=== PATIENT | female | born 1965 | race Caucasian/White ===

== ENCOUNTER 2020-10-01 18:59 | Emergency (ER) | payer OTHER, SELFPAY ==
[2020-10-01 19:15] VITALS: BP 128/78; PULSE 78; RESP 18; TEMP 36.6; O2SAT 98; BMI 19.3
--- NOTE | 2020-10-01 19:20 | PC.NURSE ---
pt calm and coopertive and requesting lab work for lithium levels. pt eloped ER from bed prior to being seen by provider. pt ambulatory and steady gait on feet. pt refused to be seen and stated this verbally but unwitnessed when patient actually left ER.
== END 2020-10-01 19:41 | disposition left against medical advice (07) ==
LOC: HO.ED 19:29
PROVIDERS: Emergency Provider Emergency Medicine
DX: Z51.81 Encounter for therapeutic drug level monitoring (principal)
CPT/HCPCS: 99282

== ENCOUNTER 2020-10-01 19:46 | Emergency (ER) | payer OTHER, SELFPAY ==
--- NOTE | 2020-10-01 | ECG_ITS ---
Test Reason : SUBSTANCE Blood Pressure : / mmHG Vent. Rate : 085 BPM Atrial Rate : 085 BPM P-R Int : 138 ms QRS Dur : 086 ms QT Int : 372 ms P-R-T Axes : 069 064 059 degrees QTc Int : 442 ms Normal sinus rhythm Normal ECG When compared with ECG of 24-NOV-2017 22:19, No significant change was found Referred By: Pedro Luis Zambrano Electronically Signed By:KAUSHIK CASTRO
[2020-10-01 20:11] VITALS: BP 146/98; PULSE 109; RESP 18; TEMP 36.2; O2SAT 97; BMI 23.8
[2020-10-01] MEDS: LORazepam 1 MG TABLET 2 MG PO (20:32)
--- NOTE | 2020-10-01 20:55 | PC.NURSE ---
Patient pulled needle out of arm during attempt to draw blood. Refuses to sit still. RN gave ativan. Will attempt again again when patient is calm.
[2020-10-01 21:18] LABS: COVID-19 Test Negative (Negative)
[2020-10-01 21:37] LABS: MANUAL DIFF FLAG NO
[2020-10-01 21:39] LABS: Basophils Absolute Auto 0.1 X10*3/uL (0.0-0.2); Basophils Percent Auto 0.8 % (0-2); Eosinophils Absolute Auto 0.2 X10*3/uL (0.0-0.4); Eosinophils Percent Auto 2.5 % (0-4); Hematocrit 42.2 % (37-47); Hemoglobin 14.1 g/dl (12.0-16.0); Imm Gran Abs Auto 0.02 X10*3/uL (0.00-0.03); Imm Gran Pct Auto 0.3 % (0.0-0.4); Lymphocytes Absolute Auto 2.8 X10*3/uL (1.2-4.9); Mean Corpuscular HGB Conc 33.4 g/dl (31.0-35.0); Mean Corpuscular Hemoglobin 32.9 pg (27.0-33.0); Mean Corpuscular Volume 98.4 fL (80-98); Mean Platelet Volume 9.7 fL (9.4-12.3); Monocytes Absolute Auto 0.5 X10*3/uL (0.1-1.2); Neutrophils Absolute Auto 3.7 X10*3/uL (2.0-8.3); Neutrophils Percent Auto 51.4 % (45-73); Platelet Count 344 X10*3/uL (160-400); Red Blood Count 4.29 X10*6/uL (4.20-5.50); Red Cell Distribution Width 13.2 % (11.0-16.0); White Blood Count 7.3 X10*3/uL (4.8-10.8)
--- NOTE | 2020-10-01 21:54 | ED.PSYCH ---
HPI - Psych General Chief Complaint: Psychiatric Symptoms Stated Complaint: crisis etoh Time Seen by Provider: 10/01/20 22:24 Source: patient Mode of arrival: ambulatory Limitations: no limitations History of Present Illness HPI Narrative: Patient brought to the ED for evaluation. Patient was brought by EMS due to police informing EMS patient was calling them about of fired due to electrical car plugged near her house occurring for the past 3 days. Which is false. Patient also has been drinking heavily. As per patient EMS report negative for any trauma. Related Data Home Medications Medication Instructions Recorded Confirmed fluoxetine 1 cap PO QAM 10/01/20 10/01/20 lithium carbonate 1 tab PO BID 10/01/20 10/01/20 quetiapine 1 tab PO BEDTIME 10/01/20 10/01/20 quetiapine [Seroquel] 1 tab PO TID 10/01/20 10/01/20 Allergies Allergy/AdvReac Type Severity Reaction Status Date / Time No Known Allergies Allergy Unverified 03/29/20 16:01 [No Known Allergies*] Review of Systems Review of Systems: Yes all other systems are reviewed and are negative Constitutional: Constitutional: Reports as per HPI and Reports no additional constitutional complaints Eyes: Eyes: Reports as per HPI and Reports no additional eye complaints ENT: Reports system reviewed and no additional complaints, except as documented and Reports as per HPI Cardiovascular: Cardiovascular: Reports as per HPI and Reports no additional cardiovascular complaints Respiratory: Respiratory: Reports as per HPI and Reports no additional respiratory complaints Gastrointestinal: Gastrointestinal: Reports as per HPI and Reports no additional gastrointestinal complaints Genitourinary: Genitourinary: Reports no additional female genitourinary complaints and Reports as per HPI Musculoskeletal: Musculoskeletal: Reports no additional musculoskeletal complaints and Reports as per HPI Neurologic: Reports system reviewed and no additional complaints, except as documented and Reports as per HPI Psychiatric: Psychiatric: Reports no additional psychiatric complaints and Reports as per HPI [facility] Past Medical History Medical History (Updated 10/01/20 @ 19:18 by Jason Cutler) No known health problems Social History Social History Advance Directives: No Advance Directives Information Provided: No Physical Exam Vital Signs: Vital Signs: Last Vital Signs Temp 97.2 F 10/01/20 20:11 Pulse 109 H 10/01/20 20:11 Resp 18 10/01/20 20:11 BP 146/98 H 10/01/20 20:11 Pulse Ox 97 10/01/20 20:11 Body Mass Index 23.8 Const: General: cooperative, healthy appearing, comfortable, no acute distress, well developed, alert, awake and Physically active Orientation/consciousness: patient oriented x3 HENMT: Head: Yes normal to inspection, Yes No palpable skull fracture present, Yes normocephalic, Yes atraumatic, No abrasion, No Garcia's sign, No contusion, No cranial bruits, No hematoma, No laceration, No occipital foramen tenderness, No palpable skull fracture, No raccoon eyes, No scalp lesion, No scalp tenderness, No Temporal artery tenderness present and No periorbital ecchymosis Eyes: General: appearance normal, both eyes and all related structures Neck: Neck: Yes normal visual inspection, Yes full ROM, Yes no lymphadenopathy, Yes no meningeal signs, Yes trachea midline, Yes supple, No bilateral parotid enlargement, No lymphadenopathy, No midline deformity, No positive Brudzinski's sign, No positive Kernig's sign, No tender, No tracheal deviation, No tracheostomy present, No JVD, No no JVD, No submandibular swelling and No prominent supraclavicular fat pad Chest: Chest palpation & inspection: normal inspection of the chest and normal palpation of entire chest wall Resp: Effort & Inspection: normal respiratory effort and able to speak in complete sentences Auscultation: clear to auscultation bilaterally Cardio: Jugular venous distension: no JVD Heart sounds: S1 normal heart sound present and S2 normal heart sound present GI: Inspection: Yes normal to inspection and No abdominal wall ecchymosis Palpation (GI): Soft to palpation, not firm, nontender, no guarding and not rigid : General: No CVA tenderness and Yes no CVA tenderness Back/Spine/Pelvis: Back: no CVA tenderness, No CVA tenderness and No back tenderness Skin: General skin exam: no rashes or lesions noted and elasticity normal Neuro: General: patient oriented x3, no meningeal signs and CN's II-XI intact bilaterally Cranial nerves: Yes CN's II-XII intact bilaterally Extrem: General: Yes normal to inspection and Yes full ROM Psych: Appearance: grossly normal, well kempt and not disheveled Course Course Course Narrative: Patient will have labs to be medically cleared. Once medically clear patient be evaluated by [facility] Reevaluation(s) Reevaluation #1: Patient labs are baseline. Patient awaiting [facility] evaluation. Sign into Dr. Argueta [facility] - Psych Lab Data Result diagrams: 10/01/20 21:31 10/01/20 21:31 Labs: Lab Results 10/01/20 10/01/20 10/01/20 Range/Units 20:51 21:31 21:31 WBC 7.3 (4.8-10.8) X10*3/uL RBC 4.29 (4.20-5.50) X10*6/uL Hgb 14.1 (12.0-16.0) g/dl Hct 42.2 (37-47) % MCV 98.4 H (80-98) fL MCH 32.9 (27.0-33.0) pg MCHC 33.4 (31.0-35.0) g/dl RDW 13.2 (11.0-16.0) % Plt Count 344 (160-400) X10*3/uL MPV 9.7 (9.4-12.3) fL Immature Gran % (Auto) 0.3 (0.0-0.4) % Neut % (Auto) 51.4 (45-73) % Lymph % (Auto) 38.0 (20-40) % [place] % (Auto) 7.0 (2-11) % Eos % (Auto) 2.5 (0-4) % Baso % (Auto) 0.8 (0-2) % Lymph # (Auto) 2.8 (1.2-4.9) X10*3/uL [place] # (Auto) 0.5 (0.1-1.2) X10*3/uL Eos # (Auto) 0.2 (0.0-0.4) X10*3/uL Baso # (Auto) 0.1 (0.0-0.2) X10*3/uL Abs Immat Gran (auto) 0.02 (0.00-0.03) X10*3/uL Absolute Neuts (auto) 3.7 (2.0-8.3) X10*3/uL Absolute Nucleated RBC 0.000 (0.0-0.012) X10*3/uL Nucleated RBC % (auto) 0.0 (0.0-0.2) /100WBC Sodium 143 (135-145) mmol/L Potassium 4.0 (3.3-5.1) mmol/L Chloride 107 (96-108) mmol/L Carbon Dioxide 23 (22-29) mmol/L Anion Gap 17 (12-20) BUN 12 (9-16) mg/dL Creatinine 0.67 (0.5-1.4) mg/dL Estim Creat Clear Calc 77.6 Estimated GFR > 60 Random Glucose 90 (60-115) mg/dL Calcium 9.3 (8.4-10.2) mg/dL Total Bilirubin 0.4 (0.0-1.0) mg/dL Direct Bilirubin < 0.2 (0.0-0.5) mg/dL AST 17 (5-31) U/L ALT 11 (0-31) U/L Alkaline Phosphatase 77 (39-117) U/L B-Natriuretic Peptide Total Protein 8.3 H (6.5-8.0) g/dL Albumin 5.0 (3.5-5.0) g/dL Urine Opiates Screen (Not Detect) Ur Barbiturates Screen (Not Detect) Ur Phencyclidine Scrn (Not Detect) Ur Amphetamines Screen (Not Detect) U Benzodiazepines Scrn (Not Detect) [place] (0.60-1.20) mmol/L Urine Cocaine Screen (Not Detect) U Marijuana (THC) Screen (Not Detect) Ethyl Alcohol mg/dL COVID-19 ([place]) Negative (Negative) COVID-19 Clin Com See Note 10/01/20 10/01/20 10/01/20 Range/Units 21:31 21:31 21:31 WBC (4.8-10.8) X10*3/uL RBC (4.20-5.50) X10*6/uL Hgb (12.0-16.0) g/dl Hct (37-47) % MCV (80-98) fL MCH (27.0-33.0) pg MCHC (31.0-35.0) g/dl RDW (11.0-16.0) % Plt Count (160-400) X10*3/uL MPV (9.4-12.3) fL Immature Gran % (Auto) (0.0-0.4) % Neut % (Auto) (45-73) % Lymph % (Auto) (20-40) % [place] % (Auto) (2-11) % Eos % (Auto) (0-4) % Baso % (Auto) (0-2) % Lymph # (Auto) (1.2-4.9) X10*3/uL [place] # (Auto) (0.1-1.2) X10*3/uL Eos # (Auto) (0.0-0.4) X10*3/uL Baso # (Auto) (0.0-0.2) X10*3/uL Abs Immat Gran (auto) (0.00-0.03) X10*3/uL Absolute Neuts (auto) (2.0-8.3) X10*3/uL Absolute Nucleated RBC (0.0-0.012) X10*3/uL Nucleated RBC % (auto) (0.0-0.2) /100WBC Sodium (135-145) mmol/L Potassium (3.3-5.1) mmol/L Chloride (96-108) mmol/L Carbon Dioxide (22-29) mmol/L Anion Gap (12-20) BUN (9-16) mg/dL Creatinine (0.5-1.4) mg/dL Estim Creat Clear Calc Estimated GFR Random Glucose (60-115) mg/dL Calcium (8.4-10.2) mg/dL Total Bilirubin (0.0-1.0) mg/dL Direct Bilirubin (0.0-0.5) mg/dL AST (5-31) U/L ALT (0-31) U/L Alkaline Phosphatase (39-117) U/L B-Natriuretic Peptide Cancelled Total Protein (6.5-8.0) g/dL Albumin (3.5-5.0) g/dL Urine Opiates Screen (Not Detect) Ur Barbiturates Screen (Not Detect) Ur Phencyclidine Scrn (Not Detect) Ur Amphetamines Screen (Not Detect) U Benzodiazepines Scrn (Not Detect) [place] < 0.10 L (0.60-1.20) mmol/L Urine Cocaine Screen (Not Detect) U Marijuana (THC) Screen (Not Detect) Ethyl Alcohol 236 mg/dL COVID-19 ([place]) (Negative) COVID-19 Clin Com 10/01/20 Range/Units 21:49 WBC (4.8-10.8) X10*3/uL RBC (4.20-5.50) X10*6/uL Hgb (12.0-16.0) g/dl Hct (37-47) % MCV (80-98) fL MCH (27.0-33.0) pg MCHC (31.0-35.0) g/dl RDW (11.0-16.0) % Plt Count (160-400) X10*3/uL MPV (9.4-12.3) fL Immature Gran % (Auto) (0.0-0.4) % Neut % (Auto) (45-73) % Lymph % (Auto) (20-40) % [place] % (Auto) (2-11) % Eos % (Auto) (0-4) % Baso % (Auto) (0-2) % Lymph # (Auto) (1.2-4.9) X10*3/uL [place] # (Auto) (0.1-1.2) X10*3/uL Eos # (Auto) (0.0-0.4) X10*3/uL Baso # (Auto) (0.0-0.2) X10*3/uL Abs Immat Gran (auto) (0.00-0.03) X10*3/uL Absolute Neuts (auto) (2.0-8.3) X10*3/uL Absolute Nucleated RBC (0.0-0.012) X10*3/uL Nucleated RBC % (auto) (0.0-0.2) /100WBC Sodium (135-145) mmol/L Potassium (3.3-5.1) mmol/L Chloride (96-108) mmol/L Carbon Dioxide (22-29) mmol/L Anion Gap (12-20) BUN (9-16) mg/dL Creatinine (0.5-1.4) mg/dL Estim Creat Clear Calc Estimated GFR Random Glucose (60-115) mg/dL Calcium (8.4-10.2) mg/dL Total Bilirubin (0.0-1.0) mg/dL Direct Bilirubin (0.0-0.5) mg/dL AST (5-31) U/L ALT (0-31) U/L Alkaline Phosphatase (39-117) U/L B-Natriuretic Peptide Total Protein (6.5-8.0) g/dL Albumin (3.5-5.0) g/dL Urine Opiates Screen Not Detected (Not Detect) Ur Barbiturates Screen Not Detected (Not Detect) Ur Phencyclidine Scrn Not Detected (Not Detect) Ur Amphetamines Screen Not Detected (Not Detect) U Benzodiazepines Scrn Not Detected (Not Detect) [place] (0.60-1.20) mmol/L Urine Cocaine Screen POSITIVE H (Not Detect) U Marijuana (THC) Screen POSITIVE H (Not Detect) Ethyl Alcohol mg/dL COVID-19 ([place]) (Negative) COVID-19 Clin Com Discharge Plan Discharge Clinical Impression: Alcohol abuse Prescriptions: No Action quetiapine 25 mg tablet 1 tab PO BEDTIME RF: 0 quetiapine [Seroquel] 25 mg tablet 1 tab PO TID RF: 0 lithium carbonate 450 mg tablet extended release 1 tab PO BID RF: 0 fluoxetine 20 mg capsule 1 cap PO QAM RF: 0
[2020-10-01 21:56] LABS: Ethanol 236 mg/dL
[2020-10-01 21:59] LABS: Alanine Aminotransferase 11 U/L (0-31); Alkaline Phosphatase 77 U/L (39-117); Aspartate Amino Transferase 17 U/L (5-31); Bilirubin Direct < 0.2 mg/dL (0.0-0.5); Bilirubin Total 0.4 mg/dL (0.0-1.0); Total Protein 8.3 g/dL (6.5-8.0)
[2020-10-01 22:07] LABS: Lithium < 0.10 mmol/L (0.60-1.20)
[2020-10-01 22:21] LABS: Amphetamine Screen Urine Not Detected (Not Detect); Barbiturates, Urine Not Detected (Not Detect); Benzodiazepines Screen Urine Not Detected (Not Detect); Cannabinoid Screen Urine POSITIVE (Not Detect); Cocaine Screen Urine POSITIVE (Not Detect); Opiate Screen Urine Not Detected (Not Detect); Phencyclidine Screen Urine Not Detected (Not Detect)
[2020-10-01 22:36] LABS: Anion Gap 17 (12-20); Blood Urea Nitrogen 12 mg/dL (9-16); Calcium 9.3 mg/dL (8.4-10.2); Carbon Dioxide 23 mmol/L (22-29); Chloride 107 mmol/L (96-108); Creatinine Clr Calc Pharmacy 77.6; Estimated Glomerular Filt Rate > 60; Glucose Random 90 mg/dL (60-115); Sodium 143 mmol/L (135-145)
[2020-10-01] MEDS: QUEtiapine Fumarate 50 MG TABLET PO (22:40)
--- NOTE | 2020-10-01 22:53 | PC.NURSE ---
Patient continues to present restlessness, pacing, on phone multiple times, engages in tangential conversation, demanding discharges, [place] 50 mg administered, will continue to monitor.
[2020-10-02] MEDS: diphenhydrAMINE HCL 25 MG TABLET 50 MG PO (01:02)
[2020-10-02] MEDS: HaloperidoL 5 MG TABLET PO (01:02)
[2020-10-02] MEDS: LORazepam 1 MG TABLET 2 MG PO (01:02)
--- NOTE | 2020-10-02 01:08 | PC.NURSE ---
Patient restless, pacing, intrusive, loud, disruptive, exit seeking, [id number], security called for support, behavior not changed and patient is fall risk, provider notified/ordered Ativan 2 mg PO, Benadryl 50 mg, and Haldol 5 mg, patient compliant, will continue to monitor.
--- NOTE | 2020-10-02 07:26 | PC.NURSE ---
Report received from JOS[facility]IG[facility]. Pt awake, requesting to speak to someone about discharge. Pt informed that she will need to wait until she is evaluated by crisis. Pt affect anxious, pt states she does not use ETOH daily and denies any symptoms of withdrawal.
[2020-10-02 08:09] VITALS: BP 110/74; PULSE 94; RESP 15; TEMP 37.1; O2SAT 94
--- NOTE | 2020-10-02 08:11 | PC.NURSE ---
MIRIANN called to confirm receipt of information of pt. Per N, no clinician will be available. Care team Brea Rapp notified.
[2020-10-02] MEDS: QUEtiapine Fumarate 25 MG TABLET PO (08:35)
[2020-10-02] MEDS: LORazepam 1 MG TABLET PO (08:35)
[2020-10-02] MEDS: FLUoxetine HCl 20 MG CAPSULE PO (08:35)
[2020-10-02 10:00] VITALS: RESP 20
--- NOTE | 2020-10-02 10:23 | PC.NURSE ---
Late entry: On arrival pt acutely anxious, perseverative re: discharge. Pt reminded several times that she is awaiting evaluation by crisis, but pt w/ difficulty retaining information. Pt alert, oriented x3, denied any symptoms of withdrawal. Pt medicated for anxiety, and is currently being evaluated by the CARE team.
--- NOTE | 2020-10-02 11:07 | PC.NURSE ---
Pt out in lee, awaiting care team to return w/ dispo. Pt clear, thought process appears logical, anxious at times re: going home. Pt denies SI.
[2020-10-02 12:00] VITALS: RESP 20
--- NOTE | 2020-10-02 12:36 | PC.NURSE ---
Pt given discharge instructions and work note as requested. Pt alert, orineted. Lyft ride obtained by care team. Pt aware, and in agreement w/ plan. No concerns reported.
== END 2020-10-02 12:38 | disposition home or self-care (01) ==
PROVIDERS: Physician Assistant; Emergency Provider Emergency Medicine Emergency Medical Services
DX: F10.10 Alcohol abuse, uncomplicated (principal); Y90.7 Blood alcohol level of 200-239 mg/100 ml; Z20.822 Contact with and (suspected) exposure to COVID-19; F14.90 Cocaine use, unspecified, uncomplicated; F12.90 Cannabis use, unspecified, uncomplicated; F41.9 Anxiety disorder, unspecified
CPT/HCPCS: 36415; 80048; 80076; 80178; 80307; 80320; 85025; 87635; 93005; 99284; Q0163

== ENCOUNTER 2020-10-04 11:20 | Outpatient (REF) | payer OTHER, SELFPAY | END 2020-10-04 11:21 | disposition home or self-care (01) | LOC: HO.LAB 11:20 | PROVIDERS: Visit Provider Internal Medicine | DX: Z20.822 Contact with and (suspected) exposure to COVID-19 (principal) | CPT/HCPCS: 36415; C9803; U0003; U0005 ==

== ENCOUNTER 2020-10-08 10:45 | Outpatient (REF) | payer OTHER, SELFPAY | END 2020-10-08 10:46 | disposition home or self-care (01) | LOC: HO.LAB 10:45 | PROVIDERS: Visit Provider Internal Medicine | DX: Z20.822 Contact with and (suspected) exposure to COVID-19 (principal) | CPT/HCPCS: 36415; C9803; U0003; U0005 ==

== ENCOUNTER 2021-07-13 11:18 | Outpatient (REF) | payer OTHER, SELFPAY ==
[2021-07-13 12:50] LABS: COVID-19 Test Negative (Negative); IDNOW Serial# 55D5AD1C
== END 2021-07-13 11:19 | disposition home or self-care (01) ==
LOC: HO.LAB 11:18
PROVIDERS: Visit Provider Internal Medicine
DX: Z20.822 Contact with and (suspected) exposure to COVID-19 (principal)
CPT/HCPCS: 36415; 87635; C9803

== ENCOUNTER 2025-02-17 07:31 | Emergency (ER) | payer MEDICAID, SELFPAY ==
[2025-02-17 07:40] VITALS: BP 103/67; PULSE 84; RESP 16; TEMP 36.4; BMI 26.9
--- NOTE | 2025-02-17 08:16 | ED_ITS ---
HPI - General Adult General Chief complaint: General Medical Stated complaint: GROIN PAIN Time Seen by Provider: 02/17/25 08:15 Source: patient and RN notes reviewed Mode of arrival: EMS Limitations: no limitations History of Present Illness ED Provider: Oneyda Hamm PA-C HPI narrative: 59-year-old female with medical history of presents to the ED today due to 2 days of left groin pain. Patient states she participated in yoga class Thursday, took a nap and woke up around 3:00 p.m. with a sharp constant pain in her left groin area. Patient states the pain is worsening, and is now having pain with ambulation. Patient reports having her urine tested yesterday at [facility] where she states they ?found a little something? in my urine and started her on antibiotics, although she is unaware of what antibiotic therapy she is on. Patient reports she woke up this morning around 3:00 a.m. due to groin pain and felt a brief episode of chest pain, that she states was likely due to anxiety over the pain as it resolved soon after waking up. Additionally, patient states she was in [place] on [place], and is worried that this may be a tick bite. She has not taken any pain relievers for pain management. Denies shortness of breath, abdominal pain, nausea, vomiting, diarrhea, dark/tarry stool, headaches, urinary symptoms Related Data Home Medications ?Medication ?Instructions ?Recorded ?Confirmed fluoxetine 20 mg capsule 1 cap PO QAM 10/01/20 lithium carbonate 450 mg 1 tab PO BID 10/01/20 tablet,extended release quetiapine 25 mg tablet 1 tab PO BEDTIME 10/01/20 quetiapine 25 mg tablet (Seroquel) 1 tab PO TID 10/01/20 Previous Rx's ?Medication ?Instructions ?Recorded cyclobenzaprine 5 mg tablet 5 mg PO TID PRN muscle spa sm #12 02/17/25 tabs Allergies Allergy/AdvReac Type Severity Reaction Status Date / Time No Known Allergies (No Known Allergy Unverified 02/17/25 07:44 Allergies*) Review of Systems 2 Review of Systems: CONST: Negative for fever, body aches and chills. HENT: Negative for neck pain/stiffness, headache, congestion, sore throat, swelling. EYES: Negative for discharge/pain or vision changes. RESP: Negative for cough/hemoptysis and shortness of breath. CV: Negative chest pain, difficulty breathing, palpitations. ABD: Negative pain, nausea, vomiting. : Negative increase frequency, dysuria, blood in urine or stool. MUSC: Negative for muscle aches, edema. POS L groin pain SKIN: Negative rash, lesions/sores. NEURO: Negative headache, dizziness, weakness. Yes all other systems are reviewed and are negative [facility] Past Medical History Attestation statement: The following information was validated with the patient. Source: old records reviewed and nursing notes reviewed Medical History (Updated 02/17/25 @ 08:52 by Noris Call PA-C) No known health problems Social History Social History Comment: N/A Advance Directives: No Advance Directives Information Provided: Yes Do you have a plan to hurt others: No Plan Physical Exam ED Vital Signs: Vital Signs - 24 hr 02/17/25 07:40 Temperature 97.6 F Pulse Rate 84 Respiratory Rate 16 Blood Pressure 103/67 Oxygen Delivery Method Room Air BMI result Body Mass Index 26.9 GENERAL APPEARANCE: ?AxOx4, generally well-appearing, no acute distress. HEENT: ?NC, AT. MMM. EOMI, clear conjunctiva, oropharynx clear. NECK: ?Supple without lymphadenopathy.? No stiffness or restricted ROM. HEART:? Normal rate and regular rhythm, normal S1/S2, no m/r/g LUNGS:? CTAB, moving air well. No crackles or wheezes are heard. ABDOMEN: ?Soft, nontender, nondistended with good bowel sounds heard. BACK: No CVAT, no obvious deformity. : On visual inspection of the external vagina no lesions, abnormalities, no masses palpated of the left groin, left labia majora TTP without lesions, vesicles, rashes, no evidence of tick, no erythema, no edema, labia minora without rashes, lesions, overlying skin changes EXTREMITIES: ?Without cyanosis, clubbing or edema. NEUROLOGICAL: ?Grossly nonfocal. Alert and oriented, moving all 4 extremities. Skin: ?Warm and dry without any rash. Medications Administered Discontinued Medications Generic Name Dose Route Start Last Admin Trade Name Freq PRN Reason Stop Dose Admin Acetaminophen 975 mg 02/17/25 08:29 02/17/25 09:07 Acetaminophen 325 Mg Tablet PO 02/17/25 08:30 975 mg ONCE ONE Administration Cyclobenzaprine HCl 5 mg 02/17/25 08:29 02/17/25 09:07 Cyclobenzaprine Hcl 5 Mg Tablet PO 02/17/25 08:30 5 mg ONCE ONE Administration Ketorolac Tromethamine 15 mg 02/17/25 08:29 02/17/25 09:07 Ketorolac Tromethamine 15 Mg/Ml Vial IVPUSH 02/17/25 08:30 15 mg ONCE ONE Administration Medical Decision Making Medical Decision Making MDM Narrative: 59-year-old female with medical history of presents to the ED today due to 2 days of left groin pain. Patient states she participated in yoga class Thursday, took a nap and woke up around 3:00 p.m. with a sharp constant pain in her left groin area. Patient states the pain is worsening, and is now having pain with ambulation. Patient reports having her urine tested yesterday at [facility] where she states they ?found a little something? in my urine and started her on antibiotics, although she is unaware of what antibiotic therapy she is on. Patient reports she woke up this morning around 3:00 a.m. due to groin pain and felt a brief episode of chest pain, that she states was likely due to anxiety over the pain as it resolved soon after waking up. Additionally, patient states she was [place], and is worried that this may be a tick bite. She has not taken any pain relievers for pain management. VSS, BP 103/67, pulse rate 84, respiratory rate of 16, patient afebrile with oral temp of 97.6?. On physical exam lungs clear to auscultation bilaterally, normal cardiac exam with regular rate, no murmurs/rubs/gallops, abdomen soft, nondistended, nontender, no suprapubic tenderness- less likely acute abdomen I inspected external genitalia, labia majora without lesions, rash, vesicles, no evidence of tick or tick bite, left labia majora TTP, no erythema, no palpated masses of the left groin, no overlying skin changes of left groin, labia minora without vesicles, lesions, rashes, no visual vaginal discharge externally. Left hip with full ROM, strength 5/5 bilaterally of lower extremities. Patient without chest pain now, patient states had a brief episode of chest pain around 3:00 a.m. the lasted for approximately 30 minutes. Patient states chest pain was likely due to anxiety over pain of the left groin. EKG shows normal sinus rhythm, without ST-elevation/depression, T-wave abnormality, initial troponin undetectable at <2.7 Plan for labs, UA, tick panel Course 8:47- no visual abnormalities on physical exam of left groin, or labia majora. I do think this is a probable strain of the left groin from yoga class, as her symptoms began shortly after participating in this class. Patient being medicated with 15 mg IM ketorolac, 975 p.o. Tylenol, 5 mg Flexeril to see if this gives relief of symptoms. Due to groin pain, we will evaluate UA for evidence of blood, further need to observe for nephrolithiasis, however patient without CVA tenderness bilaterally. Awaiting labs, UA Patient without visual or palpable masses left groin- less likely inguinal hernia No vesicles or visual rashes of labia majora/minora- less likely herpes 10:20- Labs without leukocytosis, H and H stable, no evidence of electrolyte abnormality. UA reveals 1+ leukocyte esterase, 6-10 urine WBCs, 1+ bacteria, with 11-20 squamous epithelial cells. Patient already on antibiotics for UTI prescribed to her by [facility]. I counseled patient to continue her antibiotic regimen. Patient states pain has improved significantly since being medicated with IM ketorolac, Tylenol, Flexeril. I observed the patient ambulating without ataxic gait. At this time I believe patient has strain of left groin after yoga class, as symptoms began shortly after this physical activity, physical exam free of any palpable masses, lesions, skin changes of the external genitalia, groin. We will prescribe 4 day course of Flexeril, I counseled patient to alternate 500 mg Tylenol, 400 mg ibuprofen, with gentle stretching for pain management. I encouraged patient to follow up with her PCP to ensure improvement. I counseled patient on strict return precautions including onset of fevers, abdominal pain, worsening groin pain, difficulty walking. Patient understands, is in agreement with the plan Differential Diagnosis Differential Diagnoses: The differential diagnosis associated with the presentation includes Acute abdomen Inguinal hernia Herpes Nephrolithiasis Left groin strain Admission/Observation Consideration of admission/observation: Escalation of care including admission/observation considered Lab Data MDM Lab Attestation statement: I reviewed the patient's lab results. 02/17/25 09:18 02/17/25 09:18 Labs: Lab Results 02/17/25 02/17/25 Range/Units 09:17 09:18 WBC 7.7 (4.8-10.8) X10*3/uL RBC 3.58 L (4.20-5.50) X10*6/uL Hgb 11.0 L (12.0-16.0) g/dl Hct 32.2 L (37.0-47.0) % MCV 89.9 (80.0-98.0) fL MCH 30.7 (27.0-33.0) pg MCHC 34.2 (31.0-35.0) g/dl RDW 13.3 (11.0-16.0) % Plt Count 293 (160-400) X10*3/uL MPV 9.3 L (9.4-12.3) fL Immature Gran % (Auto) 0.4 (0.0-0.4) % Neut % (Auto) 63.2 (45-73) % Lymph % (Auto) 21.3 (20-40) % [place] % (Auto) 10.8 (2-11) % Eos % (Auto) 3.8 (0-4) % Baso % (Auto) 0.5 (0-2) % Lymph # (Auto) 1.6 (1.2-4.9) X10*3/uL [place] # (Auto) 0.8 (0.1-1.2) X10*3/uL Eos # (Auto) 0.3 (0.0-0.4) X10*3/uL Baso # (Auto) 0.0 (0.0-0.2) X10*3/uL Abs Immat Gran (auto) 0.03 (0.00-0.03) X10*3/uL Absolute Neuts (auto) 4.8 (2.0-8.3) x10*3/uL Absolute Nucleated RBC 0.000 (0.0-0.012) X10*3/uL Nucleated RBC % (auto) 0.0 (0.0-0.2) /100WBC Sodium 138 (135-145) mmol/L Potassium 4.7 (3.3-5.1) mmol/L Chloride 103 (96-108) mmol/L Carbon Dioxide 27 (22-29) mmol/L Anion Gap 13 (12-20) BUN 14 (9-16) mg/dL Creatinine 0.65 (0.5-1.4) mg/dL Estim Creat Clear Calc 92.2 Estimated GFR > 60 Random Glucose 105 (60-115) mg/dL Calcium 9.2 (8.4-10.2) mg/dL Magnesium 2.2 (1.6-2.6) mg/dL Total Bilirubin 0.2 (0.0-1.0) mg/dL AST 19 (5-31) U/L ALT 12 (0-31) U/L Alkaline Phosphatase 95 (39-117) U/L Troponin I High Sens < 2.7 (<3.5-17.0) ng/L Total Protein 6.8 (6.5-8.0) g/dL Albumin 4.1 (3.5-5.0) g/dL Urine Color Dark Yellow Urine Appearance Clear Urine pH 5.5 (5.0-9.0) Ur Specific [place] 1.020 (1.005-1.025) Urine Protein Negative (Neg-Trace) mg/dL Urine Glucose (UA) Negative (Negative) mg/dL Urine Ketones Negative (Negative) mg/dL Urine Blood Negative (Negative) Urine Nitrite Negative (Negative) Ur Leukocyte Esterase Small (1+) H (Negative) Urine RBC 0-2 (0-2) /HPF Urine WBC 6-10 H (0-5) /HPF Ur Squamous Epith Cells 11-20 (0-2) /HPF Urine Bacteria 1+ (None Seen) Hyaline Casts 0-2 (0-2) /LPF Independent Interpretation I performed an independent interpretation of an: EKG Interpretation: I personally interpreted the EKG which revealed normal sinus rhythm without ST elevation/depression Vent. Rate : 73 BPM Atrial Rate : 73 BPM P-R Int : 154 ms QRS Dur : 84 ms QT Int : 394 ms P-R-T Axes : 48 18 31 degrees QTcB Int : 434 ms Normal sinus rhythm External Record Review External record reviewed: Inpatient record, Office record and Outpatient record Discharge Plan Discharge Clinical Impression: Groin strain Patient Disposition: Home, Self-Care Instructions: Muscle Strain (DC), Groin Strain (ED) Additional Instructions: You were evaluated in the ED today due to 2 days of left groin pain. Your lab work was negative for infection or any electrolyte abnormality. your UA revealed small amount of bacteria, however you were already on antibiotic treatment. your EKG was negative for any acute cardiac processes, your initial troponin which is an enzyme that your heart gives off when under stress or damage was negative. Your physical exam did not reveal any skin changes, rashes, lesion, palpable masses of the groin or labia of the vagina. I believe at this time your pain is caused by a muscle strain due to your symptoms beginning shortly after yoga class. To manage this pain, I will prescribe you a 4 day course of Flexeril which is a muscle relaxer. You should also take 500 mg of Tylenol, 400 mg of ibuprofen every 6 hours for pain. You can ice the affected area, or apply heat for muscle tension. You were medicated in the department with 5 mg Flexeril, 15 mg of intramuscular injection of ketorolac which is a strong NSAID, 975 mg of oral Tylenol, which gave good relief to your pain. You will not need any additional Tylenol or ibuprofen until 6:00 p.m. this evening. Continue to finish your antibiotic for UTI treatment that you were prescribed by [facility]. I recommend you follow up with your primary care doctor to ensure improvement. We are awaiting the results of your tick panel, we will call you if these are positive and begin appropriate therapy if needed. Please return to the ED if you experience fevers over 100.4?, worsening groin pain, lumps or masses felt in the groin, abdominal pain, nausea, vomiting, blood in the urine, chest pain, shortness of breath, or any new/worsening/concerning symptoms. Prescriptions: New cyclobenzaprine 5 mg tablet 5 mg PO TID PRN (Reason: muscle spasm) Qty: 12 0RF No Action quetiapine 25 mg tablet 1 tab PO BEDTIME quetiapine [Seroquel] 25 mg tablet 1 tab PO TID lithium carbonate 450 mg tablet extended release 1 tab PO BID fluoxetine 20 mg capsule 1 cap PO QAM Print Language: Danish
--- NOTE | 2025-02-17 08:34 | ECG_ITS ---
Test Reason : CHEST PAIN Blood Pressure : */* mmHG Vent. Rate : 73 BPM Atrial Rate : 73 BPM P-R Int : 154 ms QRS Dur : 84 ms QT Int : 394 ms P-R-T Axes : 48 18 31 degrees QTcB Int : 434 ms Normal sinus rhythm Septal infarct , age undetermined Abnormal ECG When compared with ECG of 01-Oct-2020 21:16, T wave amplitude has increased in Lateral leads Referred By: Noris Call Electronically Signed By: KAUSHIK CASTRO
[2025-02-17 09:24] LABS: MANUAL DIFF FLAG NO
[2025-02-17 09:25] LABS: Appearance Urine Clear; Glucose Urine UA Negative (Negative); PH 5.5 (5.0-9.0); Specific Gravity - Urine 1.020 (1.005-1.025); UMIC TRIGGER UACC YES
[2025-02-17 09:25] LABS: Hematocrit 32.2 % (37.0-47.0); Hemoglobin 11.0 g/dl (12.0-16.0); Imm Gran Abs Auto 0.03 X10*3/uL (0.00-0.03); Imm Gran Pct Auto 0.4 % (0.0-0.4); Lymphocytes Absolute Auto 1.6 X10*3/uL (1.2-4.9); Mean Corpuscular HGB Conc 34.2 g/dl (31.0-35.0); Mean Corpuscular Hemoglobin 30.7 pg (27.0-33.0); Mean Corpuscular Volume 89.9 fL (80.0-98.0); NRBC Abs Auto 0.000 X10*3/uL (0.0-0.012); NRBC Pct Auto 0.0 /100WBC (0.0-0.2); Platelet Count 293 X10*3/uL (160-400); Red Blood Count 3.58 X10*6/uL (4.20-5.50); White Blood Count 7.7 X10*3/uL (4.8-10.8)
[2025-02-17 09:36] LABS: UACC Culture Trigger YES
[2025-02-17 09:46] LABS: Alanine Aminotransferase 12 U/L (0-31); Albumin Level 4.1 g/dL (3.5-5.0); Alkaline Phosphatase 95 U/L (39-117); Anion Gap 13 (12-20); Aspartate Amino Transferase 19 U/L (5-31); Blood Urea Nitrogen 14 mg/dL (9-16); Calcium 9.2 mg/dL (8.4-10.2); Carbon Dioxide 27 mmol/L (22-29); Chloride 103 mmol/L (96-108); Creatinine Clr Calc Pharmacy 92.2; Estimated Glomerular Filt Rate > 60; Magnesium 2.2 mg/dL (1.6-2.6); Potassium 4.7 mmol/L (3.3-5.1); Sodium 138 mmol/L (135-145); Total Protein 6.8 g/dL (6.5-8.0)
[2025-02-17 09:56] LABS: Troponin-I High Sensitivity < 2.7 ng/L (<3.5-17.0)
[2025-02-17 10:29] VITALS: BP 118/66; PULSE 84; RESP 16; TEMP 36.8; O2SAT 95
[2025-02-17 11:17] VITALS: BP 110/76; PULSE 78; RESP 16; TEMP 36.8; O2SAT 98
[2025-02-18 14:58] LABS: A. Phagocytphilium DNA,RT-PCR NOT DETECTED (NOT DETECTED); Babesia Microti DNA, RT-PCR NOT DETECTED (NOT DETECTED); Borrelia Miyamotoi,DNA RT-PCR NOT DETECTED (NOT DETECTED); E.Chaffeensis DNA RT-PCR NOT DETECTED (NOT DETECTED); Lyme(Borrelia ssp)DNA RT-PCR NOT DETECTED (NOT DETECTED)
== END 2025-02-17 11:19 | disposition home or self-care (01) ==
PROVIDERS: Emergency Provider Emergency Medicine Emergency Medical Services
DX: S39.011A Strain of muscle, fascia and tendon of abdomen, initial encounter (principal); X58.XXXA Exposure to other specified factors, initial encounter; Y93.9 Activity, unspecified; Y92.9 Unspecified place or not applicable; Y99.9 Unspecified external cause status; R07.9 Chest pain, unspecified; R10.30 Lower abdominal pain, unspecified
CPT/HCPCS: 36415; 80053; 81001; 83735; 84484; 85025; 87086; 87468; 87469; 87478; 87484; 87798; 93005; 96374; 99284; J1885

== ENCOUNTER → 2025-02-17 08:34 | Outpatient (BNV) | payer MEDICAID, SELFPAY | PROVIDERS: Emergency Provider Emergency Medicine Emergency Medical Services; Visit Provider Internal Medicine | DX: R94.31 Abnormal electrocardiogram [ECG] [EKG] (principal); R07.9 Chest pain, unspecified | CPT/HCPCS: 93010 ==

== ENCOUNTER 2025-02-22 13:49 | Emergency (ER) | payer MEDICAID, SELFPAY ==
--- NOTE | ~2025-02-22 | US_ITS ---
EXAMINATION: US PELVIS, LIMITED CLINICAL INFORMATION: ? incarcerated hernia on left COMPARISON: None available. TECHNIQUE: Targeted ultrasound was performed at the location of clinical concern in the left inguinal region. FINDINGS: The survey shows multiple normal appearing lymph nodes, for example measuring 2.6 x 0.8 cm. No fluid collections or suggestion of local hernia seen. US/US pelvic limited IMPRESSION: No sonographic evidence of hernia in the left inguinal region. Electronically signed by: Jose Maria Mcknight MD 02/22/2025 03:46 PM EDT
[2025-02-22 14:09] VITALS: BP 106/76; PULSE 88; RESP 12; TEMP 36.6; O2SAT 97; BMI 25.3
--- NOTE | 2025-02-22 14:09 | ED.GENADULT ---
HPI - General Adult General Chief complaint: Abdominal Pain Stated complaint: lower abd pain, Hernia? DR sent Time Seen by Provider: 02/22/25 16:43 Source: patient Mode of arrival: ambulatory Limitations: no limitations History of Present Illness ED Provider: HPI narrative: Patient complaining of left groin pain for last 1 week after doing a yoga was seen here on 02/17 prescribed Flexeril and ibuprofen patient is taking them as still having the pain was seen at urgent care center today was sent the patient here for possible hernia patient denied any history of hernia no nausea no vomiting no swelling / lump in the left groin patient's pain increases on ambulation especially going upstairs Related Data Home Medications ?Medication ?Instructions ?Recorded ?Confirmed fluoxetine 20 mg capsule 1 cap PO QAM 10/01/20 10/01/20 lithium carbonate 450 mg 1 tab PO BID 10/01/20 10/01/20 tablet,extended release quetiapine 25 mg tablet 1 tab PO BEDTIME 10/01/20 10/01/20 quetiapine 25 mg tablet (Seroquel) 1 tab PO TID 10/01/20 10/01/20 Previous Rx's ?Medication ?Instructions ?Recorded cyclobenzaprine 5 mg tablet 5 mg PO TID PRN muscle spasm #12 02/17/25 tabs cyclobenzaprine 10 mg tablet 10 mg PO Q8H #20 tabs 02/22/25 oxycodone 5 mg tablet 5 mg PO Q6H PRN pain #20 tabs 02/22/25 Allergies Allergy/AdvReac Type Severity Reaction Status Date / Time No Known Allergies (No Known Allergy Verified 02/22/25 14:11 Allergies*) Review of Systems Review of Systems: Yes all other systems are reviewed and are negative [facility] Past Medical History Medical History No known health problems Social History Social History Comment: N/A Advance Directives: No Advance Directives Information Provided: Yes Do you have a plan to hurt others: No Plan Physical Exam ED Vital Signs: Vital Signs - 24 hr 02/22/25 14:09 Temperature 97.8 F Pulse Rate 88 Respiratory Rate 12 Blood Pressure 106/76 Pulse Oximetry 97 Oxygen Delivery Method Room Air BMI result Body Mass Index 25.3 Appearance: Alert. Oriented X3. No acute distress. Eyes: No pallor or icterus ENT: Pharynx normal. Oral Mucosa moist Neck: Normal inspection. Neck supple. CVS: Normal heart rate and rhythm. Pulses normal. Respiratory: No respiratory distress. Equal air entry bilateral, no wheezing/rales/rhonchi Abdomen: Soft and nontender. Bowel sounds are present, no mass palpable, no CVA tenderness no hernia palpable Skin: Skin warm and dry. Normal skin color. Normal skin turgor. Extremities: No lower extremity edema. No calf tenderness left groin no mass palpable on standing increased pain on flexion of the left thigh and adduction Neuro: Oriented X 3. No motor deficit. No sensory deficit.No cerebellar signs , cranial nerves II-XII intact Course Course Course Narrative: This is a rapid medical exam performed by Stacia Shen NP: Additional HPI, ROS, PE not included below will be deferred to primary provider. Patient is a 59-year-old female presenting to the ED with complaint of left inguinal pain, sent from urgent care to rule out incarcerated hernia. Seen here on 02/17 and diagnosed with a groin strain. Report hx of , denies other abdominal surgeries. Plan: UA, u/s Medications Administered Discontinued Medications Generic Name Dose Route Start Last Admin Trade Name Jerrodq PRN Reason Stop Dose Admin Cyclobenzaprine HCl 10 mg 02/22/25 16:52 02/22/25 16:59 Cyclobenzaprine Hcl 10 Mg Tablet PO 02/22/25 16:53 10 mg ONCE ONE Administration Ketorolac Tromethamine 30 mg 02/22/25 14:39 02/22/25 14:42 Ketorolac Tromethamine 30 Mg/Ml Vial IM 02/22/25 14:40 30 mg ONCE ONE Administration Oxycodone HCl 10 mg 02/22/25 16:53 02/22/25 16:59 Oxycodone Hcl Immed Release 5 Mg Tablet PO 02/22/25 16:54 10 mg ONCE ONE Administration Medical Decision Making Medical Decision Making [facility] Narrative: Patient with left groin strain clinically no mass palpable has a ultrasound done which is also negative for any mass will discharge patient on muscle relaxant and pain management advised to rest apply ice avoid going upstairs Differential Diagnosis Differential Diagnoses: The differential diagnosis associated with the presentation includes Inguinal hernia/inguinal strain Independent Interpretation I performed an independent interpretation of an: Ultrasound Interpretation: No hernia Discharge Plan Discharge Clinical Impression: Strain of left groin Patient Disposition: Home, Self-Care Instructions: Groin Strain (ED) Additional Instructions: Rest and apply ice avoid going upstairs Take pain medication muscle relaxant as prescribed Prescriptions: New oxycodone 5 mg tablet 5 mg PO Q6H PRN (Reason: pain) Qty: 20 0RF Rx Instructions: Partial Fill upon patient request. cyclobenzaprine 10 mg tablet 10 mg PO Q8H Qty: 20 0RF No Action quetiapine 25 mg tablet 1 tab PO BEDTIME quetiapine [Seroquel] 25 mg tablet 1 tab PO TID lithium carbonate 450 mg tablet extended release 1 tab PO BID fluoxetine 20 mg capsule 1 cap PO QAM cyclobenzaprine 5 mg tablet 5 mg PO TID PRN (Reason: muscle spasm) Qty: 12 0RF Print Language: Tunisian
[2025-02-22] MEDS: oxyCODONE HCl Immed Release 5 MG TABLET 10 MG PO (16:59)
[2025-02-22 17:07] VITALS: BP 106/76; PULSE 88; RESP 12; TEMP 36.6; O2SAT 97
== END 2025-02-22 17:08 | disposition home or self-care (01) ==
PROVIDERS: Emergency Provider Internal Medicine
DX: S39.011A Strain of muscle, fascia and tendon of abdomen, initial encounter (principal); R10.2 Pelvic and perineal pain; X58.XXXA Exposure to other specified factors, initial encounter; Y93.9 Activity, unspecified; Y92.9 Unspecified place or not applicable; Y99.8 Other external cause status; Z79.899 Other long term (current) drug therapy
CPT/HCPCS: 76857; 96372; 99283; 99284; J1885

== ENCOUNTER → 2025-02-22 14:11 | Outpatient (BNV) | payer MEDICAID, SELFPAY | PROVIDERS: Visit Provider Radiology Body Imaging | DX: R10.32 Left lower quadrant pain (principal) | CPT/HCPCS: 76857 ==

== ENCOUNTER 2025-02-28 10:28 | Emergency (ER) | payer MEDICAID, SELFPAY ==
--- NOTE | ~2025-02-28 | CT_ITS ---
EXAMINATION: CT PELVIS WITHOUT CONTRAST CLINICAL INFORMATION: Left pelvic pain COMPARISON: Ultrasound from February 22, 2025 TECHNIQUE: Helical scanning was performed with submillimeter collimation through the pelvis. Sagittal and coronal multiplanar 2-D reconstructions were obtained. This CT examination was performed using dose optimization techniques as appropriate, variously including the following: *Automated exposure control *Adjustment of mA and/or kV according to patient size (this includes techniques or standardized protocols for targeted exams where dose is matched to indication/reason for exam; i.e. extremities or head) *Use of iterative reconstruction technique DLP: 318 mGY*cm FINDINGS: PELVIS: There is thickening of the left hip adductor musculature and 2 small foci of gas within the left adductor pedro muscle. Moderate pseudodiverticula are noted in the descending and sigmoid colon without adjacent fat stranding or other inflammatory changes. Visualized portions of the gastrointestinal tract are otherwise unremarkable. There is no free fluid. Uterus and adnexa are unremarkable. The bladder is unremarkable. There is a small fat-containing umbilical hernia. No other evidence of herniation is present. OSSEOUS STRUCTURES: L3-4 demonstrates mild disc space narrowing and vacuum phenomenon. L4-5 demonstrates severe disc space narrowing and vacuum phenomenon with disc osteophyte complex. There is sacralization of L5 segment with pseudoarticulation of the left transverse process and superior sacrum. L5-S1 is unremarkable otherwise. There is mild to moderate degenerative change involving the left SI joint with sclerosis and vacuum phenomena. CT/CT pelvis wo IV con IMPRESSION: There is mild thickening and 2 foci of gas within the left adductor pedro muscle raising question of an infection/myositis Changes of diverticulosis in the descending and sigmoid colon. No clear sign of diverticulitis. Degenerative changes involve the lumbar spine and left SI joint. Electronically signed by: Elan Hunter MD 02/28/2025 02:47 PM EDT
[2025-02-28 10:30] VITALS: BP 123/70; PULSE 88; RESP 18; TEMP 36.6; O2SAT 98; BMI 26.6
[2025-02-28 13:40] VITALS: BP 119/77; PULSE 86; RESP 16; TEMP 36.1; O2SAT 98
[2025-02-28] MEDS: oxyCODONE HCl Immed Release 5 MG TABLET 10 MG PO (13:44)
--- NOTE | 2025-02-28 13:46 | ED.GENADULT ---
HPI - General Adult General Chief complaint: General Medical Stated complaint: Hip pain Time Seen by Provider: 02/28/25 13:06 Source: patient, RN notes reviewed and old records reviewed Mode of arrival: ambulatory Limitations: no limitations History of Present Illness ED Provider: Jason PLATA narrative: 59-year-old female with a past medical history significant for alcohol abuse, tobacco dependence presents for evaluation of left hip/groin pain. She has been having pain for about 2-1/2 weeks She denies any falls or trauma to the area. Her pain started after she woke up from a nap. Prior to taking her nap she does admit that she was doing yoga but does not remember injuring herself during the session Her pain is sharp, stabbing, 7/10 but worse with walking. She went to the ER to other times, had a negative pelvic ultrasound. She reports that she went to urgent care yesterday and had x-rays taken which showed a possible nondisplaced superior rami fracture on the left She was given a referral to outpatient physical therapy She reports her pain has persisted prompting her to be return to the ER for further evaluation Related Data Home Medications ?Medication ?Instructions ?Recorded ?Confirmed fluoxetine 20 mg capsule 1 cap PO QAM 10/01/20 10/01/20 lithium carbonate 450 mg 1 tab PO BID 10/01/20 10/01/20 tablet,extended release quetiapine 25 mg tablet 1 tab PO BEDTIME 10/01/20 10/01/20 quetiapine 25 mg tablet (Seroquel) 1 tab PO TID 10/01/20 10/01/20 Previous Rx's ?Medication ?Instructions ?Recorded cyclobenzaprine 5 mg tablet 5 mg PO TID PRN muscle spasm #12 02/17/25 tabs cyclobenzaprine 10 mg tablet 10 mg PO Q8H #20 tabs 02/22/25 oxycodone 5 mg tablet 5 mg PO Q6H PRN pain #20 tabs 02/22/25 oxycodone 5 mg tablet 5 mg PO Q6H PRN pain #14 tabs 02/28/25 oxycodone 5 mg tablet 5 mg PO Q6H PRN severe pain (scale 02/28/25 score 7-10) #14 tabs Allergies Allergy/AdvReac Type Severity Reaction Status Date / Time No Known Allergies (No Known Allergy Verified 02/28/25 10:34 Allergies*) Review of Systems Constitutional: Constitutional: Denies body ache(s), Denies chills and Denies fever(s) Eyes: Eyes: Denies blurry vision ENT: Denies dizziness and Denies dry mouth Cardiovascular: Cardiovascular: Denies chest pain and Denies dyspnea on exertion Respiratory: Respiratory: Denies cough and Denies dyspnea on exertion Gastrointestinal: Gastrointestinal: Denies abdominal pain, Denies nausea and Denies vomiting Musculoskeletal: Musculoskeletal: Reports arthralgias, Denies joint swelling and Denies limited range of motion Integumentary/Breasts: Skin/Breast: Denies rash Neurologic: Denies dizziness Psychiatric: Psychiatric: Denies anxiety PMFSH Past Medical History Medical History No known health problems Social History Social History Comment: N/A Smoked in Last 30 Days: No Use of substances other than those prescribed or required for medical reasons: No Advance Directives: No Advance Directives Information Provided: No Do you have a plan to hurt others: No Plan Physical Exam ED Vital Signs: Vital Signs - 24 hr 02/28/25 10:30 02/28/25 13:40 Temperature 98 F 96.9 F Pulse Rate 88 86 Respiratory Rate 18 16 Blood Pressure 123/70 119/77 Pulse Oximetry 98 98 Oxygen Delivery Method Room Air Room Air BMI result Body Mass Index 26.6 Const General: healthy appearing, comfortable, no acute distress, alert and awake Nutritional Appearance: well nourished Orientation/consciousness: patient oriented x3 HENMT Head: Yes normocephalic and Yes atraumatic Eyes Eyelids: Yes eyelids normal Conjunctivae: conjunctivae normal Sclerae: sclerae normal Corneas: corneas normal Pupils: Equal, round and reactive pupils present EOM: EOMs intact bilaterally Neck Neck: Yes full ROM Resp Effort & Inspection: normal respiratory effort, able to speak in complete sentences and not labored GI Inspection: No distended Palpation (GI): Soft to palpation, not firm, nontender, no guarding and not rigid Skin General skin exam: elasticity normal Neuro General: patient oriented x3 Cranial nerves: Yes Equal, round and reactive pupils present and Yes Bilaterally intact EOM present Cognition (Neuro): normal cognition Extrem Other: Moving all extremities well without any obvious deformities. However, the patient does have tenderness in the left groin and left hip region. Course Reevaluation(s) Reevaluation #1: Patient's CT scan showed concern for myositis with 2 foci of gas in a left adductor muscle. The patient has no fevers, no white count is not a diabetic. This was favored to not be infectious, however labs were ordered including blood cultures and inflammatory markers. The patient has not had any fevers and therefore antibiotics were held as this was favored to be inflammatory rather than infectious. . The patient would prefer to be discharged home and follow up as an outpatient for a likely inflammatory myositis. Return precautions were given, especially the patient develops fevers Time: 17:02 Medications Administered Discontinued Medications Generic Name Dose Route Start Last Admin Trade Name Freq PRN Reason Stop Dose Admin Acetaminophen 975 mg 02/28/25 10:34 02/28/25 10:58 Acetaminophen 325 Mg Tablet PO 02/28/25 10:35 975 mg ONCE ONE Administration Acetaminophen 1,000 mg in 100 mls @ 400 mls/hr 02/28/25 15:13 02/28/25 16:42 Ofirmev IV 02/28/25 15:27 Infused ONCE ONE Infusion Ketorolac Tromethamine 30 mg 02/28/25 13:39 02/28/25 13:44 Ketorolac Tromethamine 30 Mg/Ml Vial IM 02/28/25 13:40 30 mg ONCE ONE Administration Oxycodone HCl 10 mg 02/28/25 13:39 02/28/25 13:44 Oxycodone Hcl Immed Release 5 Mg Tablet PO 02/28/25 13:40 10 mg ONCE ONE Administration Medical Decision Making Medical Decision Making [facility] Narrative: 59-year-old female presents for evaluation of left hip pain. She has x-rays that show concern for a possible nondisplaced fracture of the left superior pubic rami. Denies any recent trauma. In his unclear how this fracture would have happened. We will get a CT scan of the pelvis without contrast to confirm this diagnosis and evaluate for any possible cause of the fracture. Given that she has had pain for about 2-1/2 weeks I have a very low suspicion for active pelvic hemorrhage or hematoma Differential Diagnosis Differential Diagnoses: The differential diagnosis associated with the presentation includes Pelvic fracture Hip fracture Contusion Hip strain Groin strain Lab Data 02/28/25 15:26 02/28/25 15:26 Labs: Lab Results 02/28/25 02/28/25 02/28/25 Range/Units 14:53 15:26 15:36 WBC 8.7 (4.8-10.8) X10*3/uL RBC 3.67 L (4.20-5.50) X10*6/uL Hgb 10.9 L (12.0-16.0) g/dl Hct 33.7 L (37.0-47.0) % MCV 91.8 (80.0-98.0) fL MCH 29.7 (27.0-33.0) pg MCHC 32.3 (31.0-35.0) g/dl RDW 13.3 (11.0-16.0) % Plt Count 390 D (160-400) X10*3/uL MPV 9.2 L (9.4-12.3) fL Immature Gran % (Auto) 0.5 H (0.0-0.4) % Neut % (Auto) 63.2 (45-73) % Lymph % (Auto) 23.7 (20-40) % [place] % (Auto) 8.8 (2-11) % Eos % (Auto) 3.0 (0-4) % Baso % (Auto) 0.8 (0-2) % Lymph # (Auto) 2.1 (1.2-4.9) X10*3/uL [place] # (Auto) 0.8 (0.1-1.2) X10*3/uL Eos # (Auto) 0.3 (0.0-0.4) X10*3/uL Baso # (Auto) 0.1 (0.0-0.2) X10*3/uL Abs Immat Gran (auto) 0.04 H (0.00-0.03) X10*3/uL Absolute Neuts (auto) 5.5 (2.0-8.3) x10*3/uL Absolute Nucleated RBC 0.000 (0.0-0.012) X10*3/uL Nucleated RBC % (auto) 0.0 (0.0-0.2) /100WBC ESR 66 H (0-20) MM/HR Sodium 138 (135-145) mmol/L Potassium 4.0 (3.3-5.1) mmol/L Chloride 104 (96-108) mmol/L Carbon Dioxide 25 (22-29) mmol/L Anion Gap 13 (12-20) BUN 14 (9-16) mg/dL Creatinine 0.75 (0.5-1.4) mg/dL Estim Creat Clear Calc 79.6 Estimated GFR > 60 Random Glucose 91 (60-115) mg/dL Lactic Acid 0.7 (0.5-2.0) mmol/L Calcium 9.2 (8.4-10.2) mg/dL Total Bilirubin 0.2 (0.0-1.0) mg/dL AST 20 (5-31) U/L ALT 12 (0-31) U/L Alkaline Phosphatase 100 (39-117) U/L Total Creatine Kinase 115 (26-140) U/L C-Reactive Protein 1.97 H (< or = 0.50) mg/dL Total Protein 7.3 (6.5-8.0) g/dL Albumin 4.3 (3.5-5.0) g/dL Urine Color Yellow Urine Appearance Clear Urine pH 5.5 (5.0-9.0) Ur Specific [place] 1.010 (1.005-1.025) Urine Protein Negative (Neg-Trace) mg/dL Urine Glucose (UA) Negative (Negative) mg/dL Urine Ketones Negative (Negative) mg/dL Urine Blood Trace H (Negative) Urine Nitrite Negative (Negative) Ur Leukocyte Esterase Trace H (Negative) Urine RBC 3-5 H (0-2) /HPF Urine WBC 0-5 (0-5) /HPF Ur Squamous Epith Cells 0-2 (0-2) /HPF Urine Bacteria None Seen (None Seen) Hyaline Casts 0-2 (0-2) /LPF Discharge Plan Discharge Clinical Impression: Myositis, Left leg pain Patient Disposition: Home, Self-Care Instructions: Leg Pain (ED) Additional Instructions: Your CT scan did not show a pelvic fracture but did show what is likely myositis or inflammation of the adductor pedro muscle. In his recommended that you have a biopsy of this but based on your blood work and presentation I do not believe this to be an infection that cause this Call your primary doctor tomorrow to schedule follow-up. After talking to your primary doctor, you may call Interventional Radiology You may use ibuprofen/Tylenol for pain. You may use oxycodone for more severe, breakthrough pain This may make you drowsy, do not drink alcohol or drive after taking this Follow-up with your primary doctor, return for new or worsening symptoms Prescriptions: New oxycodone 5 mg tablet 5 mg PO Q6H PRN (Reason: severe pain (scale score 7-10)) Qty: 14 0RF Rx Instructions: Partial Fill upon patient request. oxycodone 5 mg tablet 5 mg PO Q6H PRN (Reason: pain) Qty: 14 0RF Rx Instructions: Partial Fill upon patient request. No Action quetiapine 25 mg tablet 1 tab PO BEDTIME quetiapine [Seroquel] 25 mg tablet 1 tab PO TID lithium carbonate 450 mg tablet extended release 1 tab PO BID fluoxetine 20 mg capsule 1 cap PO QAM cyclobenzaprine 5 mg tablet 5 mg PO TID PRN (Reason: muscle spasm) Qty: 12 0RF oxycodone 5 mg tablet 5 mg PO Q6H PRN (Reason: pain) Qty: 20 0RF Rx Instructions: Partial Fill upon patient request. cyclobenzaprine 10 mg tablet 10 mg PO Q8H Qty: 20 0RF Referrals: Rigo Cruz MD [Physician, Interventional Radiology] Referral Note: left adductor pedro myositis likely need biopsy Print Language: Slovenian
[2025-02-28 15:02] LABS: Appearance Urine Clear; Glucose Urine UA Negative (Negative); PH 5.5 (5.0-9.0); Specific Gravity - Urine 1.010 (1.005-1.025); UMIC TRIGGER UACC YES
--- OUTSIDE RECORDS SUMMARY | 2025-02-28 15:20 | XMS_ITS | Clinical Summary ---
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 6.7 g 3 Active FLUoxetine (PROZAC) 10 MG capsule Take 10 mg by mouth every morning. 3 Active LORazepam (ATIVAN) 0.5 MG tablet Take 0.5 mg by mouth 2 (two) times a day. 3 Active tiZANidine (ZANAFLEX) 4 MG tablet Take 1 tablet (4 mg total) by mouth every 6 (six) hours as needed. 30 tablet 3 Active cloNIDine HCL (CATAPRES) 0.1 MG tablet 4 Active prazosin (MINIPRESS) 1 MG capsule 4 Active nabumetone (RELAFEN) 500 MG tabletIndicatio ns:Crush injury of left foot, initial encounter Take 1 tablet (500 mg total) by mouth 2 (two) times a day as needed for pain (specific location in comments) (Left foot pain). 10 tablet 4 Active ciprofloxacin-d exAMETHasone (CIPRODEX) otic suspension 4 drops by Each Ear route 2 (two) times a day. 7.5 mL 4 Active FLUoxetine (PROZAC) 20 MG capsule 4 Active naproxen (NAPROSYN) 500 MG tablet Take 1 tablet (500 mg total) by mouth 2 (two) times a day with meals. 20 tablet 3 11/09/19 23 Discontinu ed(No longer taking) Active Problems No known active problems Immunizations Immunization Administration Dates Next Due INFLUENZA, SPLIT VIRUS, TRIVALENT PF 05/02/2016 INFLUENZA, SPLIT VIRUS, TRIVALENT W/ PRESERVATIV E IM 04/13/2015 Influenza Quadrivalent MDCK Preservative Free IM 04/11/2021,04/23/2019 Influenza Quadrivalent Preservative Free IM 03/13,07/03/2017 Influenza Quadrivalent w/ Preservative IM 2017 Rabies-im 11/25/2017 Td (adult),2 Lf Tetanus Toxoid, PF, Adsorbed Tdap 04/06/2018 Social History Tobacco Use Types Packs/Day Years Used Date Smoking Tobacco: Every Day Cigarettes Smokeless Tobacco: Never Tobacco Cessation:Ready to Q uit: Not Asked; Counseling Given: Not Answered Alcohol Use Standard Drinks/Week Comments Yes 2 (1 standard drink = 0.6 oz pur e alcohol) daily Education Answer Date Recorded Are you interested in more education? Not on margarito e 11/07/2022 Are you concerned about learning? Not on file 11/07/2022 No 11/07/2022 No 11/07/2022 Digital Access Answer Date Recorded No 12/06/2022 No 12/06/2022 Reliable internet access at home? Not on file 12/06/2022 Device with a working camera? Not on file Intimate Partner Violence Answer Date R ecorded Are you denied basic needs s uch as food, clothing, or medical care? Deferred 08/30/2024 In the past 12 months have y ou been in a relationship with a person who hurts, threatens, or tries to control you? Deferred 08/30/2024 Are you denied basic needs s uch as food, clothing, or medical care? Deferred 08/30/2024 In the past 12 months have y ou been in a relationship with a person who hurts, threatens, or tries to control you? Deferred 08/30/2024 Comments Unknown Sex and Gender Information Value Date Recorded Sex Assigned at Female 08/18/2019 12:43 PM EST Legal Sex Female 9:38 PM EDT Gender Identity Female 08/18/2019 12:43 PM EST Sexual Orientation Don't know 01/23/2024 7: 11 AM EDT Last Filed Vital Signs Vital Sign Reading Time Taken Comments Blood Pressure 118/79 08/30/2024 12:06 AM EST Pulse 84 08/30/2024 12:06 AM EST Temperature 36.5 C (97.7 F) 08/30/2024 12:06 AM EST Respiratory Rate 21 08/30/2024 12:06 AM EST Oxygen Saturation 98% 08/30/2024 12:06 AM EST Inhaled Oxygen Concentration - - Weight 49.9 kg (110 lb) 07/10/2024 3:01 AM EST Height 162.6 cm (5' 4 ) 07/10/2024 3:01 AM EST Body Mass Index 18.88 07/10/2024 3:01 AM EST Plan of Treatment Health Maintenance Due Date Last Done Comments LIPID PANEL 1967 DEPRESSION SCREENING 1979 SMOKING Hx and SMOKELESS TOBACCO SCREENING 12/07/1980 HEPATITIS C SCREENING 12/07/1985 HIV ONE-TIME SCREENING (18-6 5 YEARS) 12/07/1985 PNEUMOCOCCAL VACCINES (50+ years) (1 of 2 - PCV) 12/07/1986 PAP SMEAR 12/07/1988 MAMMOGRAM 2007 COLOGUARD 12/07/2012 COLONOSCOPY 12/07/2012 COLORECTAL CANCER SCREENING 12/07/2012 FIT TEST 12/07/2012 FOBT 12/07/2012 SIGMOIDOSCOPY 12/07/2012 VIRTUAL COLONOSCOPY 12/07/2012 ZOSTER VACCINES (1 of 2) 12/07/2017 COVID-19 VACCINE (3 - 2023-2 5 season) 2024 11/03/2020, 10/13/2020 Adult Td,Tdap Booster 04/06/2028 04/06/2018 , 11/24/2017 HEPATITIS A VACCINES Aged Out No long er eligible based on patient's age to complete this topic HIB VACCINES Aged Out No longer eligi ble based on patient's age to complete this topic MENINGOCOCCAL VACCINES (ACWY) Aged Out No longer eligible based on patient's age to complete this topic MENINGOCOCCAL VACCINES (B) Aged Out N o longer eligible based on patient's age to complete this topic Medical Devices Not on file Insurance Additional Source Comments The information contained in this document represents components of the legal health record. It is not the complete legal health record.[facility]
[2025-02-28 15:33] LABS: MANUAL DIFF FLAG NO
[2025-02-28 15:43] LABS: Hematocrit 33.7 % (37.0-47.0); Hemoglobin 10.9 g/dl (12.0-16.0); Imm Gran Abs Auto 0.04 X10*3/uL (0.00-0.03); Imm Gran Pct Auto 0.5 % (0.0-0.4); Lymphocytes Absolute Auto 2.1 X10*3/uL (1.2-4.9); Mean Corpuscular HGB Conc 32.3 g/dl (31.0-35.0); Mean Corpuscular Hemoglobin 29.7 pg (27.0-33.0); Mean Corpuscular Volume 91.8 fL (80.0-98.0); NRBC Abs Auto 0.000 X10*3/uL (0.0-0.012); NRBC Pct Auto 0.0 /100WBC (0.0-0.2); Platelet Count 390 X10*3/uL (160-400); Red Blood Count 3.67 X10*6/uL (4.20-5.50); White Blood Count 8.7 X10*3/uL (4.8-10.8)
[2025-02-28 15:48] LABS: Alanine Aminotransferase 12 U/L (0-31); Albumin Level 4.3 g/dL (3.5-5.0); Alkaline Phosphatase 100 U/L (39-117); Anion Gap 13 (12-20); Aspartate Amino Transferase 20 U/L (5-31); Blood Urea Nitrogen 14 mg/dL (9-16); Calcium 9.2 mg/dL (8.4-10.2); Carbon Dioxide 25 mmol/L (22-29); Chloride 104 mmol/L (96-108); Creatinine Clr Calc Pharmacy 79.6; Estimated Glomerular Filt Rate > 60; Potassium 4.0 mmol/L (3.3-5.1); Sodium 138 mmol/L (135-145); Total Protein 7.3 g/dL (6.5-8.0)
[2025-02-28 17:23] VITALS: BP 146/53; PULSE 73; RESP 14; TEMP 36.6; O2SAT 94
[2025-02-28 17:30] VITALS: BP 146/53; PULSE 73; RESP 14; TEMP 36.6; O2SAT 94
== END 2025-02-28 17:31 | disposition home or self-care (01) ==
PROVIDERS: Physician Assistant; Emergency Provider Emergency Medicine
DX: M60.9 Myositis, unspecified (principal); R10.2 Pelvic and perineal pain; M25.552 Pain in left hip
CPT/HCPCS: 36415; 72192; 80053; 81001; 81003; 82550; 83605; 85025; 85652; 86140; 87040; 96365; 96372; 99284; J0131; J1885

== ENCOUNTER → 2025-02-28 13:39 | Outpatient (BNV) | payer MEDICAID, SELFPAY | PROVIDERS: Emergency Provider Emergency Medicine; Visit Provider Radiology Diagnostic Radiology | DX: R10.2 Pelvic and perineal pain (principal); M51.369 Other intervertebral disc degeneration, lumbar region without mention of lumbar back pain or lower extremity pain | CPT/HCPCS: 72192 ==